=== PATIENT | female | born 1975 | race Asian ===

== ENCOUNTER 2021-11-24 11:20 | Emergency (ER) | payer OTHER, SELFPAY ==
[~2021-11-24] VITALS: Ht 152.4 cm; Wt 60.3 kg
[~2021-11-24 11:20] MED LIST: FLUORESCEIN SODIUM 1 MG OPHTHALMIC STRIP OP ONE; PROPARACAINE (OPTHANINE 0.5%) 15 ML DROPS OP ONE
[2021-11-24] MEDS ORDERED: TETRACAINE (PONTOCAINE) TOPICAL 30 ML SOLUTION TP ONE (11:21)
[2021-11-24] MEDS ORDERED: FLUORESCEIN SODIUM 1 MG OPHTHALMIC STRIP OP ONE (11:21)
[2021-11-24 11:29] VITALS: BP_SYST 121
--- NOTE | 2021-11-24 11:38 | NUR ---
pt. came in with concerned about shingles reaching her eye, was seen yesterday at PCP and is being treated but was informed to seek ER help if eye became sore, rates facial and eye pain 07/28
--- NOTE | 2021-11-24 12:58 | NUR ---
ER in triage examining patient.
[2021-11-24] MEDS ORDERED: HYDR-3917 PO (13:32)
[2021-11-24 13:40] VITALS: BP_SYST 121
--- NOTE | 2021-11-24 13:40 | NUR ---
Patient given written and verbal discharge instructions and verbalizes understanding. ER Dr. Siu discussed with patient the results and treatment provided. Patient in stable condition. ID arm band removed. Rx of [place] given. Patient educated on pain management and to follow up with PMD. Pain Scale 9. Opportunity for questions provided and answered. Medication side effect fact sheet provided.
== END 2021-11-24 13:40 | disposition home or self-care (01) ==
LOC: SED 11:20
DX: B02.9 Zoster without complications (principal); Z88.1 Allergy status to other antibiotic agents
CPT/HCPCS: 99283